=== PATIENT | female | born 1995 | race Two or more races ===

== ENCOUNTER 2019-04-25 19:06 | Emergency (ER) | payer MEDICAID, OTHER ==
[~2019-04-25] VITALS: Ht 162.6 cm; Wt 63.5 kg
[2019-04-25 19:27] VITALS: BP 131/93
[2019-04-25 20:05] LABS: Basophils # (auto) 0 uL; Basophils % (auto) 0.3 % (0.0-2.0); Eosinophils # (auto) 0.1 uL; Eosinophils % (auto) 1.1 % (0.0-7.0); Hematocrit 46.5 % (36.0-46.0); Hemoglobin 15.3 g/dL (12.2-16.2); Lymphocytes # (auto) 3.6 uL; Lymphocytes % (auto) 39.4 % (10.0-50.0); Mean Corpuscular Volume 84.9 fL (80.0-100.0); Monocytes # (auto) 0.7 uL; Neutrophils # (auto) 4.7 uL; Neutrophils % (auto) 51.2 % (37.0-80.0); Nucleated Red Blood Cells % 0.3 %; Platelet Count (auto) 300 10^3/uL (140-450); Red Blood Cells 5.47 10^6/uL (4.0-5.20); Red Cell Distribution Width 13.6 % (11.8-14.3); White Blood Cell 9.2 10^3/uL (4.4-10.8)
[2019-04-25 20:15] LABS: Albumin 4.4 g/dL (3.4-5.0); Calcium 12.6 mg/dL (8.5-10.1)
[2019-04-25 20:18] LABS: BUN/Creatinine Ratio 15.4; Bilirubin, Total 1.1 mg/dL (0.2-1.0); Total Protein 8.5 g/dL (6.4-8.2)
[2019-04-25 20:51] LABS: Urine Bacteria NONE SEEN /hpf (None Seen); Urine Blood Negative /uL (Negative); Urine Mucus FEW (None Seen); Urine WBC 4 /hpf (0 - 5)
== END 2019-04-25 23:45 | disposition left against medical advice (07) ==
LOC: ER 19:06
DX: R10.12 Left upper quadrant pain (principal); Z53.21 Procedure and treatment not carried out due to patient leaving prior to being seen by health care provider
CPT/HCPCS: 36415; 74176; 80053; 81001; 82150; 83690; 85025

== ENCOUNTER 2019-09-06 22:38 | Emergency (ER) | payer MEDICAID ==
[~2019-09-06] VITALS: Ht 152.4 cm; Wt 59.0 kg
[2019-09-06 22:48] VITALS: BP 112/76
== END 2019-09-06 23:24 | disposition left against medical advice (07) ==
LOC: EDBD 22:38 → ER 22:45
DX: R10.9 Unspecified abdominal pain (principal); R11.10 Vomiting, unspecified; Z53.21 Procedure and treatment not carried out due to patient leaving prior to being seen by health care provider
CPT/HCPCS: 93005

== ENCOUNTER 2019-09-10 15:00 | Inpatient (IN) | payer MEDICAID ==
[~2019-09-10] VITALS: Ht 162.6 cm; Wt 58.7 kg
[2019-09-10] MEDS ORDERED: PANTOPRAZOLE 40 MG/10 ML VIAL INJ IV STA (15:09)
[2019-09-10] MEDS ORDERED: SODIUM CHLORIDE 0.9% 1,000 ML IVB ONE (15:09)
[2019-09-10] MEDS ORDERED: ONDANSETRON HCL 4 MG/2 ML VIAL IV ONE (15:15)
[2019-09-10] MEDS ORDERED: MORPHINE SULFATE 4 MG/ML SYR/VIAL IV ONE (15:15)
[2019-09-10 15:59] LABS: Albumin 3.2 g/dL (3.4-5.0); Calcium 11.7 mg/dL (8.5-10.1); Potassium 3.8 mmol/L (3.5-5.1)
[2019-09-10 16:01] LABS: BUN/Creatinine Ratio 16.7
[2019-09-10 16:03] LABS: Basophils # (auto) 0 uL; Basophils % (auto) 0.3 % (0.0-2.0); Eosinophils # (auto) 0.1 uL; Eosinophils % (auto) 0.9 % (0.0-7.0); Hematocrit 41.7 % (36.0-46.0); Hemoglobin 13.7 g/dL (12.2-16.2); Lymphocytes # (auto) 2.5 uL; Lymphocytes % (auto) 26.6 % (10.0-50.0); Mean Corpuscular Hemoglobin 27.4 pg (28.0-32.0); Mean Corpuscular Hgb Conc. 32.8 g/dL (32.0-36.0); Mean Corpuscular Volume 83.3 fL (80.0-100.0); Monocytes # (auto) 0.9 uL; Monocytes % (auto) 9.3 % (0.0-12.0); Neutrophils % (auto) 62.9 % (37.0-80.0); Nucleated Red Blood Cells % 0.1 %; Platelet Count (auto) 283 10^3/uL (140-450); Red Cell Distribution Width 13.1 % (11.8-14.3); White Blood Cell 9.5 10^3/uL (4.4-10.8)
[2019-09-10 16:04] LABS: Bilirubin, Total 0.8 mg/dL (0.2-1.0); Total Protein 8.2 g/dL (6.4-8.2)
[2019-09-10 22:32] LABS: Urine Bacteria FEW /hpf (None Seen); Urine Blood 2+ /uL (Negative); Urine Mucus FEW (None Seen); Urine WBC 17 /hpf (0 - 5)
[2019-09-10 22:45] LABS: Alcohol, Urine < 3.0 mg/dL (0-5); Amphetamine Screen, Urine NEGATIVE (NEGATIVE); Barbiturate Scree,Urine NEGATIVE (NEGATIVE); Benzodiazephine Screen, Urine NEGATIVE (NEGATIVE); Cannabinoid Screen, Urine NEGATIVE (NEGATIVE); Cocaine Screen, Urine NEGATIVE (NEGATIVE); Phencyclidine Screen, Urine NEGATIVE (NEGATIVE)
[2019-09-10 22:54] LABS: Opiate Scree,Urine POSITIVE (NEGATIVE)
[2019-09-10] MEDS ORDERED: cefTRIAXone 1GM/50ML D5W 50 ML IV ONE (23:45)
[2019-09-11] MEDS ORDERED: MORPHINE SULFATE 4 MG/ML SYR/VIAL IV ONE
[2019-09-11] MEDS ORDERED: ONDANSETRON HCL 4 MG/2 ML VIAL IV ONE
[2019-09-11] MEDS ORDERED: ONDANSETRON HCL 4 MG/2 ML VIAL ONE ×5 (00:13)
[2019-09-11] MEDS ORDERED: MORPHINE SULFATE INJECTION 1 ML ONE ×2 (00:13)
[2019-09-11] MEDS ORDERED: HYDROcodone-ACET 5/325MG TAB PO PRN (03:00)
[2019-09-11] MEDS ORDERED: MORPHINE SULFATE 4 MG/ML SYR/VIAL IV PRN (03:00)
[2019-09-11] MEDS ORDERED: ONDANSETRON HCL 4 MG/2 ML VIAL IV PRN (03:00)
[2019-09-11] MEDS ORDERED: ACETAMINOPHEN 325 MG TAB PO PRN (03:00)
[2019-09-11] MEDS ORDERED: TEMAZEPAM 15 MG CAP PO PRN (03:00)
[2019-09-11] MEDS: cefTRIAXone 1GM/50ML D5W 50 ML IV SCH (03:58)
[2019-09-11] MEDS: D5W/SOD CHLO 0.9% 1,000 ML IV SCH ×2 (03:59→16:33)
[2019-09-11 04:08] LABS: Amylase 37 U/L (25-115); Lipase 149 U/L (73-393)
[2019-09-11] MEDS ORDERED: MORPHINE SULF INJ 2 MG/ML SYRINGE 1ML IV PRN (07:00)
--- NOTE | 2019-09-11 09:06 | NUR ---
RECEIVED PATIENT TO THE FLOOR A/O X4, Patient having abdominal pain. will orient patient to the floor and plan of care. Bed locked in lowest position with two side rails up and call light in reach.
[2019-09-11] MEDS ORDERED: FAMOTIDINE 20 MG TAB PO SCH (10:00)
[2019-09-11 13:00] VITALS: BP 123/75
[2019-09-11 17:58] VITALS: BP 118/74
[2019-09-11 21:00] VITALS: BP 117/77
[2019-09-11] MEDS: PANTOPRAZOLE 40 MG TAB PO SCH (21:07)
[2019-09-11] MEDS ORDERED: FAMOTIDINE (10MG/ML) 2ML VL IV SCH (22:00)
[2019-09-12] MEDS: cefTRIAXone 1GM/50ML D5W 50 ML IV SCH (04:44)
[2019-09-12 05:00] VITALS: BP 106/65
--- NOTE | 2019-09-12 05:00 | NUR ---
CHG applied. full linen change and gown change. for procedure today.
[2019-09-12 05:15] LABS: Basophils # (auto) 0 uL; Basophils % (auto) 0.4 % (0.0-2.0); Eosinophils # (auto) 0.2 uL; Eosinophils % (auto) 3.6 % (0.0-7.0); Hematocrit 41.2 % (36.0-46.0); Hemoglobin 13.4 g/dL (12.2-16.2); Lymphocytes # (auto) 3.2 uL; Lymphocytes % (auto) 51.3 % (10.0-50.0); Mean Corpuscular Hemoglobin 27.4 pg (28.0-32.0); Mean Corpuscular Hgb Conc. 32.5 g/dL (32.0-36.0); Mean Corpuscular Volume 84.1 fL (80.0-100.0); Monocytes # (auto) 0.5 uL; Monocytes % (auto) 8.3 % (0.0-12.0); Neutrophils # (auto) 2.3 uL; Neutrophils % (auto) 36.4 % (37.0-80.0); Nucleated Red Blood Cells % 0.1 %; Platelet Count (auto) 279 10^3/uL (140-450); Red Cell Distribution Width 13.2 % (11.8-14.3); White Blood Cell 6.3 10^3/uL (4.4-10.8)
[2019-09-12] MEDS: D5W/SOD CHLO 0.9% 1,000 ML IV SCH (05:32)
[2019-09-12 05:39] LABS: Potassium 3.5 mmol/L (3.5-5.1)
[2019-09-12 05:44] LABS: INR 1.29 (0.9-1.15); Partial Thromboplastin Time 29.3 sec (23.64-32.05)
[2019-09-12 05:47] LABS: Albumin 3.4 g/dL (3.4-5.0); BUN/Creatinine Ratio 7.1; Bilirubin, Total 0.8 mg/dL (0.2-1.0); Calcium 11.8 mg/dL (8.5-10.1); Total Protein 7.9 g/dL (6.4-8.2)
--- NOTE | 2019-09-12 08:39 | NUR ---
RECEIVED REPORT AND ASSUMED CARE OF PT. A/OX4. DENIED S/S ACUTE DISTRESS. UPDATE PT WITH POC. BED AT LOWEST POSITION. CALL LIGHT AND BELONGINGS WITHIN REACH. WILL CONT TO MONITOR.
[2019-09-12 09:00] VITALS: BP 107/67
[2019-09-12] MEDS ORDERED: NALOXONE HCL 0.4 MG/ML VIAL ONE (11:56)
[2019-09-12] MEDS ORDERED: fentaNYL CITRATE 100 MCG/2 ML VL ONE (11:57)
[2019-09-12] MEDS ORDERED: MIDAZOLAM HCL 5 MG/ML-1ML VIAL ONE (11:57)
[2019-09-12] MEDS ORDERED: LIDOCAINE VISCOUS 2% 15ML UD ONE (11:57)
[2019-09-12] MEDS ORDERED: SODIUM CHLORIDE LOCK 10 ML ONE (11:57)
[2019-09-12] MEDS ORDERED: diphenhdrAMINE HCL 50 MG/1 ML VL ONE (11:58)
[2019-09-12] MEDS ORDERED: FLUMAZENIL 0.1 MG/ML INJ 10ML MDV IV ONE (11:59)
[2019-09-12 12:42] LABS: Cholesterol 112 mg/dL (< 200)
[2019-09-12 12:45] LABS: HDL Cholesterol 23 mg/dL (40-59); LDL Cholesterol 85 mg/dL (< 100); Triglycerides 90 mg/dL (< 150)
[2019-09-12] MEDS: PANTOPRAZOLE 40 MG TAB PO SCH ×2 (12:57→22:07)
[2019-09-12 13:00] VITALS: BP 97/58
[2019-09-12 17:00] VITALS: BP 106/71
--- NOTE | 2019-09-12 19:11 | NUR ---
PT RESTING IN BED. NO S/S ACUTE DISTRESS NOTED. ENDORSED CARE TO NIGHT NURSE.
--- NOTE | 2019-09-12 19:40 | NUR ---
Opening Shift Note Assumed care of patient, awake and alert x4. Visitor noted at the bedside. Patient denies pain, nausea, or shortness of breath at this time. No signs/symptoms of distress noted at this time. Instructed on plan of care and to call for assistance, patient verbalized understanding. Bed is locked in lowest position, side rails x 2 are up, and call light is within reach.
[2019-09-12 22:58] VITALS: BP 119/80
[2019-09-13] MEDS: D5W/SOD CHLO 0.9% 1,000 ML IV SCH ×2 (00:42→23:00)
[2019-09-13] MEDS: cefTRIAXone 1GM/50ML D5W 50 ML IV SCH (04:17)
[2019-09-13 05:25] VITALS: BP 95/60
[2019-09-13 07:23] LABS: Albumin 2.8 g/dL (3.4-5.0); Calcium 10.5 mg/dL (8.5-10.1); Potassium 3.8 mmol/L (3.5-5.1)
[2019-09-13 07:25] LABS: BUN/Creatinine Ratio 10.3
[2019-09-13 07:28] LABS: Bilirubin, Total 0.4 mg/dL (0.2-1.0)
--- NOTE | 2019-09-13 07:35 | NUR ---
RECEIVED PT LYING IN BED SLEEPING COMFORTABLY AND WAS IN NO DISTRESS. PT EASILY AWAKENED AND VOICED NO C/O PAIN/ DISCOMFORT. SHIFT ASSESSMENT DONE AND CHARTED.PLAN OF CARE, MEDS, TREATMENTS AND SAFETY DISCUSSED WITH PT AND PT VERBALIZED UNDERSTANDING.. BED WAS IN LOWEST POSITION WITH BRAKES ON, SIDERAILS UPX2 AND CALL LIGHT WITHIN PT'S REACH. WILL CONTINUE TO MONITOR PT.
[2019-09-13 07:56] LABS: Basophils # (auto) 0 uL; Basophils % (auto) 0.4 % (0.0-2.0); Eosinophils # (auto) 0.3 uL; Eosinophils % (auto) 4.3 % (0.0-7.0); Hematocrit 37.6 % (36.0-46.0); Hemoglobin 12.4 g/dL (12.2-16.2); Lymphocytes # (auto) 3.3 uL; Lymphocytes % (auto) 54.5 % (10.0-50.0); Mean Corpuscular Hemoglobin 27.5 pg (28.0-32.0); Mean Corpuscular Hgb Conc. 32.9 g/dL (32.0-36.0); Mean Corpuscular Volume 83.7 fL (80.0-100.0); Monocytes # (auto) 0.5 uL; Neutrophils % (auto) 32.8 % (37.0-80.0); Nucleated Red Blood Cells % 0.1 %; Platelet Count (auto) 255 10^3/uL (140-450); Red Cell Distribution Width 12.9 % (11.8-14.3)
[2019-09-13 08:00] VITALS: BP 103/59
[2019-09-13 09:00] VITALS: BP 103/59
[2019-09-13] MEDS: PANTOPRAZOLE 40 MG TAB PO SCH ×2 (09:29→23:00)
[2019-09-13 11:58] LABS: Hepatitis A Ab IgM Negative
[2019-09-13 12:25] LABS: Hepatitis B Core IgM Negative
[2019-09-13 12:41] LABS: Hepatitis B Surface Antigen Negative (Negative)
[2019-09-13 12:59] LABS: Hepatitis C Antibody Negative (Negative)
[2019-09-13 13:00] VITALS: BP 112/69
--- NOTE | 2019-09-13 14:05 | NUR ---
DR. STEWART WAS IN TO SEE PATIENT AND MD LEFT NEW ORDERS. MD STATED THAT PATIENT IS STAYING 1 MORE DAY.
[2019-09-13 17:00] VITALS: BP 103/68
[2019-09-13 23:10] VITALS: BP 120/65
[2019-09-14] MEDS: D5W/SOD CHLO 0.9% 1,000 ML IV SCH (00:03)
[2019-09-14 05:46] VITALS: BP 97/59
--- NOTE | 2019-09-14 07:20 | NUR ---
RECEIVED PT LYING IN BED COMFORTABLY IN BED SLEEPING AND WAS IN NO DISTRESS. PT EASILY AWAKENED AND VOICED NO C/O PAIN. SHIFT ASSESSMENT DONE AND CHARTED. PLAN OF CARE, MEDS, TREATMENTS AND SAFETY DISCUSSED WITH PT AND SHE VERBALIZED UNDERSTANDING. BED WAS IN LOWEST POSITION, BRAKES ON WITH SIDERAILS UP X2 AND CALL LIGHT WITHIN PT'S REACH. WILL CONTINUE TO MONITOR PT.
[2019-09-14 07:26] LABS: BUN/Creatinine Ratio 13.6; Calcium 10.7 mg/dL (8.5-10.1); Potassium 3.7 mmol/L (3.5-5.1)
[2019-09-14 07:29] LABS: Bilirubin, Total 0.6 mg/dL (0.2-1.0); Total Protein 7.4 g/dL (6.4-8.2)
--- NOTE | 2019-09-14 08:25 | NUR ---
PT TO NUCLEAR MED PER W/C FOR PARATHYROID TEST IN STABLE CONDITION.
--- NOTE | 2019-09-14 08:59 | NUR ---
PT NOTED TO BE BACK FROM NUCLEAR MED. PT HAVING BREAKFAST AT THIS TIME AND TOLERATING IT WELL.
[2019-09-14 09:00] VITALS: BP 98/57
[2019-09-14] MEDS: PANTOPRAZOLE 40 MG TAB PO SCH (09:54)
--- NOTE | 2019-09-14 11:54 | NUR ---
NUTRITION ASSESSMENT NOTES Please refer to link notes of nutrition screen form filed under the intervention section of the plan of care for further details. Est. Needs: 1450 kcal to 1750 kcal (25-30 kcal/kgBW), 68 gms to 70 gms pro (1.0-1.2 gms/kgBW). Will continue to monitor pertinent labs and reassess nutrient need prn Thank you. Addendum: 09/14/19 at [address] Amended: Links added.
[2019-09-14 12:00] VITALS: BP 97/56
[2019-09-14 13:00] VITALS: BP 103/57
--- NOTE | 2019-09-14 14:55 | NUR ---
Dr. Cody was in to see pt and md left discharge orders and prescriptions and patient aware of same.
[2019-09-14 17:00] VITALS: BP 96/70
== END 2019-09-14 17:20 | disposition home or self-care (01) | DRG 282 ==
LOC: EDBD 15:00 → ER 15:03 → OVERFLOW 15:04 → EAST 09-11 09:00
PROVIDERS: ADMIT Nurse Practitioner; ATTEND Internal Medicine
PROC: 0DJ08ZZ Inspection of Upper Intestinal Tract, Via Natural or Artificial Opening Endoscopic (ICD-10-PCS; principal; 2019-09-12 12:15)
DX: K85.90 Acute pancreatitis without necrosis or infection, unspecified (principal); K76.0 Fatty (change of) liver, not elsewhere classified; E21.3 Hyperparathyroidism, unspecified; N39.0 Urinary tract infection, site not specified; R79.89 Other specified abnormal findings of blood chemistry; R07.89 Other chest pain; Z83.3 Family history of diabetes mellitus; Z82.49 Family history of ischemic heart disease and other diseases of the circulatory system; Z90.49 Acquired absence of other specified parts of digestive tract; Z80.9 Family history of malignant neoplasm, unspecified
CPT/HCPCS: 36415; 43235; 74176; 76536; 76705; 78070; 80053; 80061; 80074; 80307; 81001; 82150; 83690; 83970; 84702; 85025; 85610; 85730; 86850; 86900; 86901; 96361; 96374; 96375; 96376; C9113; G0378; J0696; J2250; J2405; J7042

== ENCOUNTER 2025-04-22 13:57 | Inpatient (IN) | payer MEDICAID ==
[~2025-04-22] VITALS: Ht 162.6 cm; Wt 59.0 kg
--- NOTE | 2025-04-22 14:20 | ED.PDOC ---
History of Present Illness HPI Comments 29-year-old female presents to the ER with prior surgical history of cholecystectomy in 2017 and the chief complaint of abdominal pain. Patient reports on having right lower quadrant tenderness and with nausea and diarrhea last night. Patient notes that she did take ibuprofen for the pain. Denies chills, fever, V/, SOB, CP. No other associated symptoms, modifiers, recent injuries or sick contacts present at this time. Time Seen by MD: 14:15 Primary Care Provider: AMEE Ryan Notes: Nurses Notes, Medications, Allergies Allergies: Coded Allergies: NO KNOWN ALLERGIES (Unverified , 09/10/19) Home Meds No Active Prescriptions or Reported Meds Information Source: Patient Mode of Arrival: Ambulatory Severity: Moderate Timing: Hours Duration: Since onset, Hours Prehospital treatment: None Past Medical History PAST MEDICAL HISTORY: Denies Surgical History: Cholecystectomy SEED ANALYST History: No Pertinent SEED ANALYST History Family History Family History: Reviewed,noncontributory to illness, Unknown Social History Smoker: Non-Smoker Alcohol: Denies ETOH Use Drugs: Denies Drug Use Lives In: Home Constitutional: denies: chills, diaphoresis, fatigue, fever, malaise, sweats, weakness, others EENTM: denies: blurred vision, double vision, ear bleeding, ear discharge, ear drainage, ear pain, ear ringing, eye pain, eye redness, hearing loss, mouth pain, mouth swelling, nasal discharge, nose bleeding, nose congestion, nose pain, photophobia, tearing, throat pain, throat swelling, voice changes, others Respiratory: denies: cough, hemoptysis, orthopnea, SOB at rest, shortness of breath, SOB with excertion, stridor, wheezing, others Cardiovascular: denies: chest pain, dizzy spells, diaphoresis, Dyspnea on exertion, edema, irregular heart beat, left arm pain, lightheadedness, palpitations, PND, syncope, others Gastrointestinal: reports: abdominal pain, diarrhea, nausea; denies: abdomen distended, blood streaked bowels, constipated, dysphagia, difficulty swallowing, hematemesis, melena, poor appetite, poor fluid intake, rectal bleeding, rectal pain, vomiting, others Genitourinary: denies: abnormal vagina bleeding, burning, dyspareunia, dysuria, flank pain, frequency, hematuria, incontinence, pain, , vagina discharge, urgency, others Neurological: denies: dizziness, fainting, headache, left sided numbness, left sided weakness, numbness, paresthesia, pre-existing deficit, right sided numbness, right sided weakness, seizure, speech problems, tingling, tremors, weakness, others Musculoskeletal: denies: back pain, gout, joint pain, joint swelling, muscle pain, muscle stiffness, neck pain, others Integumetry: denies: bruises, change in color, change in hair/nails, dryness, laceration, lesions, lumps, rash, wounds, others Allergic/Immunocompromised: denies: Difficulty Healing, Frequent Infections, Hives, Itching, others Hematologic/Lymphatic: denies: anemia, blood clots, easy bleeding, easy bruising, swollen glands, others Endocrine: denies: excessive hunger, excessive sweating, excessive thirst, excessive urination, flushing, intolerance to cold, intolerance to heat, unexplained weight gain, unexplained weight loss, others Psychiatric: denies: anxiety, bipolar disorder, depression, hopeless, panic disorder, schizophrenia, sleepless, suicidal, others All Other Systems: Reviewed and Negative Physical Exam General Appearance: Moderate Distress, Normal HEENT: Normal ENT Inspection, Pharynx Normal, TMs Normal Neck: Full Range of Motion, Non-Tender, Normal, Normal Inspection Respiratory: Chest Non-Tender, Lungs Clear, No Accessory Muscle Use, No Respiratory Distress, Normal Breath Sounds Cardiovascular: No Edema, No JVD, No Murmur, No Gallop, Normal Peripheral Pulses, Regular Rate/Rhythm Breast Exam: Deferred Gastrointestinal: Diffuse, No Organomegaly, No Pulsatile Mass, Normal Bowel Sounds, Soft Genitalia: Deferred Pelvic: Deferred Rectal: Deferred Extremities: No calf tenderness, Normal capillary refill, Normal inspection, Normal range of motion, Non-tender, No pedal edema Musculoskeletal : Apperance: Normal Neurologic: Alert, interventional tech II-XII nml as Tested, No Motor Deficits, Normal Affect, Normal Mood, No Sensory Deficits Cerebellar Function: NOT DONE Reflexes: NOT DONE Skin: Dry, Normal Color, Warm Peripheral Pulses: 3+ Radial (R), 3+ Radial (L) Lymphatic: No Adenopathy Was a procedure done? Was a procedure done?: No Differential Dx Considerations may include: Kidney stone Electrolyte imbalance X-Ray, Labs, Meds, VS Vital Signs Date Time Temp Pulse Resp B/P (MAP) Pulse Ox O2 Delivery O2 Flow Rate FiO2 04/22/25 16:32 87 16 108/68 (81) 100 04/22/25 16:31 87 16 108/68 04/22/25 15:50 72 18 110/62 04/22/25 15:48 98.2 72 20 110/62 (78) 99 98.2 04/22/25 15:48 72 20 99 Room Air 04/22/25 14:31 98.4 70 16 116/78 (91) 100 98.4 Lab Test 04/22/25 14:39 Range/Units White Blood Count 10.9 H 4.4-10.8 10^3/uL Red Blood Count 4.95 4.0-5.20 10^6/uL Hemoglobin 13.6 12.2-16.2 g/dL Hematocrit 41.0 36.0-46.0 % Mean Corpuscular Volume 82.9 80.0-100.0 fL Mean Corpuscular Hemoglobin 27.5 L 28.0-32.0 pg Mean Corpuscular Hemoglobin Concent 33.2 32.0-36.0 g/dL Red Cell Distribution Width 13.6 11.8-14.3 % Platelet Count 231 140-450 10^3/uL Mean Platelet Volume 9.6 6.9-10.8 fL Neutrophils (%) (Auto) 70.4 37.0-80.0 % Lymphocytes (%) (Auto) 23.7 10.0-50.0 % Monocytes (%) (Auto) 4.9 0.0-12.0 % Eosinophils (%) (Auto) 0.8 0.0-7.0 % Basophils (%) (Auto) 0.2 0.0-2.0 % Neutrophils # (Auto) 7.7 1.6-8.6 10 ^3/uL Lymphocytes # (Auto) 2.6 0.4-5.4 10 ^3/uL Monocytes # (Auto) 0.5 0-1.3 10 ^3/uL Eosinophils # (Auto) 0.1 0-0.8 10 ^3/uL Basophils # (Auto) 0 0-0.2 10 ^3/uL Nucleated Red Blood Cells 0.0 % Sodium Level 139 136-145 mmol/L Potassium Level 4.6 3.5-5.1 mmol/L Chloride Level 109 H 98-107 mmol/L Carbon Dioxide Level 21 20-31 mmol/L Anion Gap 9 5-15 Blood Urea Nitrogen 7 L 9-23 mg/dL Creatinine 0.68 0.550-1.02 mg/dL Glomerular Filtration Rate Calc 120 >90 mL/min BUN/Creatinine Ratio 10.3 10.0-20.0 Serum Glucose 162 H 74-106 mg/dL Calcium Level 12.6 H 8.7-10.4 mg/dL Current Medications Medications (Trade) Dose Ordered Sig/Krsitina Route Start Time Stop Time Status Last Admin Morphine Sulfate 4 mg ONCE ONCE IV 04/22/25 14:30 04/22/25 14:31 DC 04/22/25 15:50 Ondansetron HCl (Zofran) 4 mg ONCE ONCE IV 04/22/25 14:30 04/22/25 14:31 DC 04/22/25 15:50 Sodium Chloride 1,000 ml @ 1,000 mls/hr Q1H ONCE IV 04/22/25 14:30 04/22/25 15:29 DC 04/22/25 15:45 Ketorolac Tromethamine (Toradol Injection) 30 mg ONCE ONCE IV 04/22/25 16:15 04/22/25 16:16 DC 04/22/25 16:23 Tamsulosin HCl (Flomax) 0.4 mg ONCE ONCE PO 04/22/25 16:15 04/22/25 16:16 DC 04/22/25 16:23 Ceftriaxone Sodium 50 ml @ 100 mls/hr ONCE ONCE IV 04/22/25 16:15 04/22/25 16:44 DC 04/22/25 16:23 Patient alert. Complaining of abdominal pain. Vitals stable. Answering all questions. Establish intravenous access. Was given fluids. Was given Toradol. Was given Flomax. CT scan of the abdomen does show a kidney stone. Blood sugar elevated. Explained to the patient. Continue monitoring. Time of 1ST Reevaluation: 14:45 Reevaluation 1ST: Unchanged Patient Education/Counseling: Diagnosis, Treatment, Prognosis Family Education/Counseling: No Family Present SEPSIS Sepsis Screen Physician Orders Urinalysis (04/22/25 14:20) Ct Ab Pel Wo Con-No Oral Or Iv (04/22/25 14:20) Saline Lock (04/22/25 15:29) Vital Signs Date Time Temp Pulse Resp B/P (MAP) Pulse Ox O2 Delivery O2 Flow Rate FiO2 04/22/25 16:32 87 16 108/68 (81) 100 04/22/25 16:31 87 16 108/68 04/22/25 15:50 72 18 110/62 04/22/25 15:48 98.2 72 20 110/62 (78) 99 98.2 04/22/25 15:48 72 20 99 Room Air 04/22/25 14:31 98.4 70 16 116/78 (91) 100 98.4 Laboratory Tests Test 04/22/25 14:39 White Blood Count 10.9 10^3/uL (4.4-10.8) H Medications Medications Dose Ordered Sig/Kristina Route Start Time Stop Time Status Last Admin Dose Admin Ceftriaxone Sodium 50 ml @ 100 mls/hr ONCE ONCE IV 04/22/25 16:15 04/22/25 16:44 DC 04/22/25 16:23 Ketorolac Tromethamine 30 mg ONCE ONCE IV 04/22/25 16:15 04/22/25 16:16 DC 04/22/25 16:23 Morphine Sulfate 4 mg ONCE ONCE IV 04/22/25 14:30 04/22/25 14:31 DC 04/22/25 15:50 Ondansetron HCl 4 mg ONCE ONCE IV 04/22/25 14:30 04/22/25 14:31 DC 04/22/25 15:50 Sodium Chloride 1,000 ml @ 1,000 mls/hr Q1H ONCE IV 04/22/25 14:30 04/22/25 15:29 DC 04/22/25 15:45 Tamsulosin HCl 0.4 mg ONCE ONCE PO 04/22/25 16:15 04/22/25 16:16 DC 04/22/25 16:23 Departure 1 Departure Time of Disposition: 17:50 Impression: Primary Impression: Acute abdominal pain Additional Impressions: Kidney stone Uncontrolled diabetes mellitus Qualified Codes: E13.65 - Other specified diabetes mellitus with hyperglycemia Disposition: ADMITTED INPATIENT Admit to: Med Surg Condition: Guarded e-Prescriptions No Active Prescriptions or Reported Meds Critical Care Note Critical Care Time?: No Stability Stability form required: No Heart Score Heart Score: Heart Score Response (Comments) Value History N/A 0 EKG N/A 0 Age N/A 0 Risk Factors N/A 0 Troponin N/A 0 Total 0 I personally scribed for LANA SHERMAN MD ([email or web address]) on 04/22/25 at 14:20. Electronically submitted by Aubrey Chamberlain ([email or web address]). LANA SHERMAN MD Apr 22, 2025 14:20
[2025-04-22 15:05] LABS: Hematocrit 41.0 % (36.0-46.0); Hemoglobin 13.6 g/dL (12.2-16.2); Mean Corpuscular Hemoglobin 27.5 pg (28.0-32.0); Mean Corpuscular Volume 82.9 fL (80.0-100.0); Nucleated Red Blood Cells % 0.0 %
[2025-04-22 15:14] LABS: Anion Gap 9 (5-15); Carbon Dioxide 21 mmol/L (20-31); Potassium 4.6 mmol/L (3.5-5.1); Sodium 139 mmol/L (136-145)
[2025-04-22 15:20] LABS: BUN/Creatinine Ratio 10.3 (10.0-20.0); Blood Urea Nitrogen 7 mg/dL (9-23); Calcium 12.6 mg/dL (8.7-10.4); Chloride 109 mmol/L (98-107); Glucose 162 mg/dL (74-106)
--- NOTE | 2025-04-22 15:44 | DVH ---
CT CT AB PEL WO CON-NO ORAL OR IV INDICATION: appy EXAM DATE: 04/22/2025 03:02 PM COMPARISON: None RADIATION DOSE: CTDIvol: 5.35 mGy, DLP: 279.96 mGy*cm PROCEDURE: Helical CT images were obtained of the abdomen and pelvis without IV contrast Sagittal and coronal reconstructions are provided. ORAL CONTRAST: None. ADDITIONAL IMAGES / REFORMATS: None All C T scans at this medical facility are performed using dose modulation techniques as appropriate to a p erformed exam including the following: Automated exposure control was utilized; adjustment of the MA and/or KV according to patient size; and use of iterative reconstruction technique. FINDINGS: LUNG BASE: Normal. LIVER: Low in attenuation. GALLBLADDER AND BILIARY TREE: Bing clips are seen. No intra- or extrahepatic biliary ductal dilation . PANCREAS: Coarse pancreatic calcifications can be seen with prior pancreatitis. 5.2 cm fluid/solid ma ss probably from the pancreatic tail, less likely the left adrenal gland. SPLEEN: Normal. BOWEL: Normal. Normal appendix. ADRENALS: Normal. KIDNEYS AND URETER: 5 mm distal right ureteral stone with mild right hydroureteronephrosis. Additiona l punctate nonobstructive left kidney stones. BLADDER: Normal. REPRODUCTIVE ORGANS: Normal. LYMPH NODES:No lymphadenopathy. PERITONEUM: No ascites or free air. No other fluid collection. VESSELS: Scattered atherosclerotic calcifications are noted. Prominent perisplenic vessels could be f rom splenic vein occlusion, that is chronic. RETROPERITONEUM: Normal. ABDOMINAL WALL: Normal. BONES: Normal. IMPRESSION: 5 mm distal right ureteral stone with mild right hydroureteronephrosis. Additional punctate nonobstru ctive left kidney stones. Coarse pancreatic calcifications can be seen with prior pancreatitis. 5.2 cm fluid/solid mass probabl y from the pancreatic tail, less likely the left adrenal gland. This could be an abscess vs pseudocys t vs mass that is incompletely evaluated without IV contrast. Normal appendix. Hepatic steatosis.
[2025-04-22] MEDS: SODIUM CHLORIDE 0.9% 1,000 ML IV ONE (15:45)
[2025-04-22] MEDS: ONDANSETRON HCL 4 MG/2 ML VIAL IV ONE (15:50)
[2025-04-22] MEDS: MORPHINE SULFATE 4 MG/ML SYR/VIAL IV ONE (15:50)
[2025-04-22] MEDS: TAMSULOSIN HYDROCHLORIDE 0.4 MG CAP PO ONE (16:23)
[2025-04-22] MEDS: KETOROLAC TROMETH 30 MG/ML 1ML VIAL IV ONE (16:23)
[2025-04-22] MEDS: cefTRIAXone 1GM/50ML D5W 50 ML IV ONE (16:23)
[2025-04-22] MEDS ORDERED: MORPHINE SULFATE INJ 2 MG/ml SYRG IV PRN (19:00)
[2025-04-22] MEDS ORDERED: ONDANSETRON HCL 4 MG/2 ML VIAL IV PRN (19:00)
[2025-04-22] MEDS ORDERED: TEMAZEPAM 15 MG CAP PO PRN (19:00)
[2025-04-22] MEDS ORDERED: HYDROcodone-ACET 5/325MG TAB PO PRN (19:00)
[2025-04-22] MEDS ORDERED: ACETAMINOPHEN 325 MG TAB PO PRN (19:00)
[2025-04-22 19:59] LABS: Urine Protein, UAD TRACE (Negative)
--- NOTE | 2025-04-22 21:28 | DVHHP2 ---
History of Present Illness Reason for Visit: Flank pain History of Present Illness 29-year-old female presents for evaluation of flank pain. Patient reports right lower quadrant abdominal pain with nausea that radiates to her right flank. Denies fever or chills. No other acute complaints reported. Review of Systems Review of Systems Review of systems are currently negative otherwise addressed in HPI. Allergies: Coded Allergies: NO KNOWN ALLERGIES (Unverified , 09/10/19) Medications Current Medications Medications Dose Ordered Sig/Kristina Route Start Time Stop Time Status Last Admin Dose Admin Ceftriaxone Sodium 50 ml @ 100 mls/hr DAILY@09 IV 04/23/25 09:00 Acetaminophen/ Hydrocodone Bitart 1 tab Q4HP PRN PO 04/22/25 19:00 Temazepam 15 mg QHSP PRN PO 04/22/25 19:00 Ondansetron HCl 4 mg Q4HP PRN IV 04/22/25 19:00 Acetaminophen 650 mg Q6HP PRN PO 04/22/25 19:00 Morphine Sulfate 2 mg Q6HPRN PRN IV 04/22/25 19:00 Exam Vital Signs Vital Signs Date Time Temp Pulse Resp B/P (MAP) Pulse Ox O2 Delivery O2 Flow Rate FiO2 04/22/25 18:28 97.4 74 20 103/51 (68) 100 97.4 04/22/25 15:48 Room Air Exam Gen: 29-year-old female in mild distress Skin: Warm, dry, normal color and texture, no rash. HEENT: Normocephalic atraumatic, mucous membranes moist and pink. Neck: Cervical and supraclavicular nodes normal without enlargement, trachea is midline, thyroid gland is normal without masses. Pulmonary: Clear to auscultation and percussion bilaterally. Cardiac: Regular rate and rhythm. No murmur Abdomen: Soft, right flank tenderness, nondistended, bowel sounds present all 4 quadrants, no guarding, no rigidity, no organomegaly. Extremities: No cyanosis, clubbing, no edema Neuro: Cranial nerves II through XII grossly intact, normal affect and speech, no focal motor deficits. Labs/Xrays ORDERING PHYSICIAN: LANA SHERMAN MD PROCEDURE(s): ABPL - CT AB PEL WO CON-NO ORAL OR IV REASON: appy ORDER NUMBER(s): [id number], ACCESSION NUMBER(s): [id number] CT CT AB PEL WO CON-NO ORAL OR IV INDICATION: appy EXAM DATE: 04/22/2025 03:02 PM COMPARISON: None RADIATION DOSE: CTDIvol: 5.35 mGy, DLP: 279.96 mGy*cm PROCEDURE: Helical CT images were obtained of the abdomen and pelvis without IV contrast Sagittal and coronal reconstructions are provided. ORAL CONTRAST: None. ADDITIONAL IMAGES / REFORMATS: None All CT scans at this medical facility are performed using dose modulation techniques as appropriate to a performed exam including the following: Automated exposure control was utilized; adjustment of the MA and/or KV according to patient size; and use of iterative reconstruction technique. FINDINGS: LUNG BASE: Normal. LIVER: Low in attenuation. GALLBLADDER AND BILIARY TREE: Bing clips are seen. No intra- or extrahepatic biliary ductal dilation. PANCREAS: Coarse pancreatic calcifications can be seen with prior pancreatitis. 5.2 cm fluid/solid mass probably from the pancreatic tail, less likely the left adrenal gland. SPLEEN: Normal. BOWEL: Normal. Normal appendix. ADRENALS: Normal. KIDNEYS AND URETER: 5 mm distal right ureteral stone with mild right hydroureteronephrosis. Additional punctate nonobstructive left kidney stones. BLADDER: Normal. REPRODUCTIVE ORGANS: Normal. LYMPH NODES:No lymphadenopathy. PERITONEUM: No ascites or free air. No other fluid collection. VESSELS: Scattered atherosclerotic calcifications are noted. 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 RETROPERITONEUM: Normal. ABDOMINAL WALL: Normal. BONES: Normal. IMPRESSION: 5 mm distal right ureteral stone with mild right hydroureteronephrosis. Additional punctate nonobstructive left kidney stones. Coarse pancreatic calcifications can be seen with prior pancreatitis. 5.2 cm fluid/solid mass probably from the pancreatic tail, less likely the left adrenal gland. This could be an abscess vs pseudocyst vs mass that is incompletely evalu ated without IV contrast. Normal appendix. Hepatic steatosis. Labs Test 04/22/25 19:47 04/22/25 14:39 Range/Units Urine Color Yellow Yellow Urine Clarity Turbid H Clear Urine pH 6.0 5.0-9.0 Urine Specific [place] 1.022 1.001-1.035 Urine Protein Trace H Negative Urine Ketones Trace Negative Urine Blood 3+ H Negative /uL Urine Nitrite Negative Negative Urine Bilirubin Negative Negative Urine Urobilinogen Normal Negative mg/dL Urine Leukocyte Esterase 2+ Negative /uL Urine RBC 689 0 - 4 /hpf Urine Microscopic WBC 14 H 0-5 /HPF Urine Squamous Epithelial Cells Mod <5 /hpf Urine Bacteria Few H None Seen /hpf Urine Mucus Few None Seen Urine Glucose Trace Normal mg/dL White Blood Count 10.9 H 4.4-10.8 10^3/uL Red Blood Count 4.95 4.0-5.20 10^6/uL Hemoglobin 13.6 12.2-16.2 g/dL Hematocrit 41.0 36.0-46.0 % Mean Corpuscular Volume 82.9 80.0-100.0 fL Mean Corpuscular Hemoglobin 27.5 L 28.0-32.0 pg Mean Corpuscular Hemoglobin Concent 33.2 32.0-36.0 g/dL Red Cell Distribution Width 13.6 11.8-14.3 % Platelet Count 231 140-450 10^3/uL Mean Platelet Volume 9.6 6.9-10.8 fL Neutrophils (%) (Auto) 70.4 37.0-80.0 % Lymphocytes (%) (Auto) 23.7 10.0-50.0 % Monocytes (%) (Auto) 4.9 0.0-12.0 % Eosinophils (%) (Auto) 0.8 0.0-7.0 % Basophils (%) (Auto) 0.2 0.0-2.0 % Neutrophils # (Auto) 7.7 1.6-8.6 10 ^3/uL Lymphocytes # (Auto) 2.6 0.4-5.4 10 ^3/uL Monocytes # (Auto) 0.5 0-1.3 10 ^3/uL Eosinophils # (Auto) 0.1 0-0.8 10 ^3/uL Basophils # (Auto) 0 0-0.2 10 ^3/uL Nucleated Red Blood Cells 0.0 % Sodium Level 139 136-145 mmol/L Potassium Level 4.6 3.5-5.1 mmol/L Chloride Level 109 H 98-107 mmol/L Carbon Dioxide Level 21 20-31 mmol/L Anion Gap 9 5-15 Blood Urea Nitrogen 7 L 9-23 mg/dL Creatinine 0.68 0.550-1.02 mg/dL Glomerular Filtration Rate Calc 120 >90 mL/min BUN/Creatinine Ratio 10.3 10.0-20.0 Serum Glucose 162 H 74-106 mg/dL Calcium Level 12.6 H 8.7-10.4 mg/dL Assessment/Plan Assessment/Plan Assessment Renal colic Right hydronephrosis Leukocytosis UTI Plan Admit the patient to Med surge to the hospitalist Urology consultation Pain management Rocephin Continue treatment per orders. Plan discussed with: Patient My Orders Orders - MURALI BAXTER Procedure Category Date Status Time * Urology Consult CONS 04/22/25 Transmitted 18:53 Ceftriaxone 1gm/50ml PHA 04/23/25 In Process D5w (Rocephin) 09:00 Urine Bacterial PRINCESS 04/22/25 In Process Culture 18:53 Basic Metabolic Panel LAB 04/23/25 Verified 04:00 Admit ADMIT 04/22/25 Transmitted 18:53 Hydrocodone-Acet PHA 04/22/25 In Process 5/325mg Tab ([place] 19:00 Temazepam (Restoril) PHA 04/22/25 In Process 19:00 Ondansetron Hcl PHA 04/22/25 In Process (Zofran) 19:00 Complete Blood Count LAB 04/23/25 Verified 04:00 Cardiac DIET 04/23/25 Transmitted Diet-2gna,Lofat,Lochol Breakfast Condition: Stable SEVERO 04/22/25 In Process 18:53 Acetaminophen Tablet PHA 04/22/25 In Process (Tylenol Tablet) 19:00 Bedrest With Bathroom SEVERO 04/22/25 In Process Privileg 18:53 Morphine Sulfate PHA 04/22/25 In Process Injection 19:00 Date of Service: Apr 22, 2025 Billing Provider: MURALI BAXTER Common Visit Codes: [id number] INP/OBS CARE (HIGH) MURALI BAXTER Apr 22, 2025 21:28
[2025-04-23] VITALS (7 sets, daily range): BP systolic 99–116; BP diastolic 58–70; PULSE 62–88; RESP 15–18; TEMP 97.6–98.5; O2SAT 97–99
[2025-04-23 05:50] LABS: Hematocrit 34.9 % (36.0-46.0); Hemoglobin 11.9 g/dL (12.2-16.2); Mean Corpuscular Hemoglobin 28.1 pg (28.0-32.0); Mean Corpuscular Volume 82.5 fL (80.0-100.0); Nucleated Red Blood Cells % 0.0 %
[2025-04-23 06:22] LABS: Anion Gap 8 (5-15); Carbon Dioxide 24 mmol/L (20-31); Chloride 107 mmol/L (98-107); Potassium 3.9 mmol/L (3.5-5.1); Sodium 139 mmol/L (136-145)
[2025-04-23 06:28] LABS: BUN/Creatinine Ratio 12.0 (10.0-20.0)
[2025-04-23 06:40] LABS: Blood Urea Nitrogen 9 mg/dL (9-23); Calcium 11.2 mg/dL (8.7-10.4); Glucose 114 mg/dL (74-106)
[2025-04-23] MEDS: cefTRIAXone 1GM/50ML D5W 50 ML IV SCH (08:37)
--- NOTE | 2025-04-23 09:49 | DVHINCON2 ---
Date of service: Apr 23, 2025 Referring Physician hospitalist Reason for Consultation ureteral stone History of Present Illness History Source: Patient, RN Notes, MD Notes, Old Records Exam Limitations: No limitations HPI 29-year-old female presents for evaluation of flank pain. Patient reports right lower quadrant abdominal pain with nausea that radiates to her right flank. Denies fever or chills. No other acute complaints reported. She is seen in ER holding and is pain free. Home Meds No Active Prescriptions or Reported Meds Past Medical History Patient Family History: Patient reports no known family medical history. Review of Systems Constitutional: No symptom reported Ears, Nose, & Throat: No symptom reported Eyes: No symptom reported Pulmonary/Respiratory: No symptom reported Cardiovascular: No symptom reported Gastrointestinal: No symptom reported Genitourinary: No symptom reported Musculoskeletal: No symptom reported Skin: No symptom reported Psychiatric: No symptom reported Endocrine: No symptom reported Hemotologic/Lymphatic: No symptom reported H&P Exam Vital Signs Vital Signs Date Time Temp Pulse Resp B/P (MAP) Pulse Ox O2 Delivery O2 Flow Rate FiO2 04/23/25 08:22 98.2 73 18 99/65 (76) 99 98.2 04/23/25 01:21 Room Air* 0 21 21 General Appeara: Well developed, Well nourished, Normal Appearance Appearance: Appropriate appearance, Appropriate insight Eye contact/ Speech: Cooperative, Good eye contact, Normal speech Skin Exam: Normal inspection, Normal color, Warm/dry Labs/Xrays [place] [address] Ph: [phone] DIAGNOSTIC IMAGING Diagnostic Imaging Report : [id number] Signed PATIENT: LEONARD OHT: [id number] UNIT: [id number] : 1995 LOC: ER ROOM / BED: / AGE / SEX: 29 / F ADM STATUS: REG ER SERVICE 1420 ORDERING PHYSICIAN: LANA SHERMAN MD PROCEDURE(s): ABPL - CT AB PEL WO CON-NO ORAL OR IV REASON: appy ORDER NUMBER(s): [id number], ACCESSION NUMBER(s): [id number] CT CT AB PEL WO CON-NO ORAL OR IV INDICATION: appy EXAM DATE: 04/22/2025 03:02 PM COMPARISON: None RADIATION DOSE: CTDIvol: 5.35 mGy, DLP: 279.96 mGy*cm PROCEDURE: Helical CT images were obtained of the abdomen and pelvis without IV contrast Sagittal and coronal reconstructions are provided. ORAL CONTRAST: None. ADDITIONAL IMAGES / REFORMATS: None All CT scans at this medical facility are performed using dose modulation techniques as appropriate to a performed exam including the following: Automated exposure control was utilized; adjustment of the MA and/or KV according to patient size; and use of iterative reconstruction technique. FINDINGS: LUNG BASE: Normal. LIVER: Low in attenuation. GALLBLADDER AND BILIARY TREE: Bing clips are seen. No intra- or extrahepatic biliary ductal dilation. PANCREAS: Coarse pancreatic calcifications can be seen with prior pancreatitis. 5.2 cm fluid/solid mass probably from the pancreatic tail, less likely the left adrenal gland. SPLEEN: Normal. BOWEL: Normal. Normal appendix. ADRENALS: Normal. KIDNEYS AND URETER: 5 mm distal right ureteral stone with mild right hydroureteronephrosis. Additional punctate nonobstructive left kidney stones. BLADDER: Normal. REPRODUCTIVE ORGANS: Normal. LYMPH NODES:No lymphadenopathy. PERITONEUM: No ascites or free air. No other fluid collection. VESSELS: Scattered atherosclerotic calcifications are noted. 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 RETROPERITONEUM: Normal. ABDOMINAL WALL: Normal. BONES: Normal. IMPRESSION: 5 mm distal right ureteral stone with mild right hydroureteronephrosis. Additional punctate nonobstructive left kidney stones. Coarse pancreatic calcifications can be seen with prior pancreatitis. 5.2 cm fluid/solid mass probably from the pancreatic tail, less likely the left adrenal gland. This could be an abscess vs pseudocyst vs mass that is incompletely evaluated without IV contrast. Normal appendix. Hepatic steatosis. ATED BY: SAMUEL FERNANDES MD DICTATED DATE/TIME: 04/22/25 1542 SIGNED BY: SAMUEL FERNANDES MD SIGNED DATE/TIME: 04/22/25 154 CC: Labs Test 04/23/25 05:14 04/22/25 19:47 Range/Units White Blood Count 9.1 4.4-10.8 10^3/uL Red Blood Count 4.23 4.0-5.20 10^6/uL Hemoglobin 11.9 L 12.2-16.2 g/dL Hematocrit 34.9 #L 36.0-46.0 % Mean Corpuscular Volume 82.5 80.0-100.0 fL Mean Corpuscular Hemoglobin 28.1 28.0-32.0 pg Mean Corpuscular Hemoglobin Concent 34.0 32.0-36.0 g/dL Red Cell Distribution Width 13.6 11.8-14.3 % Platelet Count 147 140-450 10^3/uL Mean Platelet Volume 9.6 6.9-10.8 fL Neutrophils (%) (Auto) 66.9 37.0-80.0 % Lymphocytes (%) (Auto) 24.5 10.0-50.0 % Monocytes (%) (Auto) 7.8 0.0-12.0 % Eosinophils (%) (Auto) 0.6 0.0-7.0 % Basophils (%) (Auto) 0.2 0.0-2.0 % Neutrophils # (Auto) 6.1 1.6-8.6 10 ^3/uL Lymphocytes # (Auto) 2.2 0.4-5.4 10 ^3/uL Monocytes # (Auto) 0.7 0-1.3 10 ^3/uL Eosinophils # (Auto) 0.1 0-0.8 10 ^3/uL Basophils # (Auto) 0 0-0.2 10 ^3/uL Nucleated Red Blood Cells 0.0 % Sodium Level 139 136-145 mmol/L Potassium Level 3.9 3.5-5.1 mmol/L Chloride Level 107 98-107 mmol/L Carbon Dioxide Level 24 20-31 mmol/L Anion Gap 8 5-15 Blood Urea Nitrogen 9 9-23 mg/dL Creatinine 0.75 0.550-1.02 mg/dL Glomerular Filtration Rate Calc 110 >90 mL/min BUN/Creatinine Ratio 12.0 10.0-20.0 Serum Glucose 114 H 74-106 mg/dL Calcium Level 11.2 H 8.7-10.4 mg/dL Urine Color Yellow Yellow Urine Clarity Turbid H Clear Urine pH 6.0 5.0-9.0 Urine Specific [place] 1.022 1.001-1.035 Urine Protein Trace H Negative Urine Ketones Trace Negative Urine Blood 3+ H Negative /uL Urine Nitrite Negative Negative Urine Bilirubin Negative Negative Urine Urobilinogen Normal Negative mg/dL Urine Leukocyte Esterase 2+ Negative /uL Urine RBC 689 0 - 4 /hpf Urine Microscopic WBC 14 H 0-5 /HPF Urine Squamous Epithelial Cells Mod <5 /hpf Urine Bacteria Few H None Seen /hpf Urine Mucus Few None Seen Urine Glucose Trace Normal mg/dL Microbiology Date/Time Source Procedure Growth Status 04/22/25 19:47 Voided Urine Urine Culture - Preliminary Resulted Assessment/Plan Problem List: (1) Kidney stone (2) Uncontrolled diabetes mellitus (3) Acute abdominal pain (4) Hepatic steatosis (5) Elevated LFTs (6) UTI (urinary tract infection) (7) Hypercalcemia Plan cleared from urology standpoint outpt f/u 2 weeks ESWL if fails trial of passage pain meds prn aggressive fluids Plan discussed with: Patient, Other SILVIANO LEES MLT Apr 23, 2025 09:49
[2025-04-23] MEDS ORDERED: CIPR500T4 PO (13:31)
== END 2025-04-23 14:40 | disposition home or self-care (01) | DRG 463 ==
LOC: ER 13:57 → OVERFLOW 18:53
PROVIDERS: ADMIT Hospitalist; ATTEND Hospitalist
DX: N13.6 Pyonephrosis (principal); K76.0 Fatty (change of) liver, not elsewhere classified; E11.65 Type 2 diabetes mellitus with hyperglycemia; E83.52 Hypercalcemia; Z90.49 Acquired absence of other specified parts of digestive tract; Z79.899 Other long term (current) drug therapy
CPT/HCPCS: 36415; 74176; 80048; 81001; 85025; 87086; 96361; 96374; 96375; G0378; J1885; J2405